=== PATIENT | male | born 1965 | race Caucasian/White ===

== ENCOUNTER 2018-05-23 08:26 | Emergency (ER) | payer OTHER ==
[~2018-05-23] VITALS: Ht 177.8 cm; Wt 167.4 kg
[2018-05-23 09:58] VITALS: BP 155/80
== END 2018-05-23 09:58 | disposition home or self-care (01) ==
LOC: ED 08:26
DX: L03.114 Cellulitis of left upper limb (principal); F11.10 Opioid abuse, uncomplicated; E11.65 Type 2 diabetes mellitus with hyperglycemia
CPT/HCPCS: 82962; 90715; A4570; J0696

== ENCOUNTER 2018-07-05 09:09 | Emergency (ER) | payer OTHER ==
[~2018-07-05] VITALS: Ht 177.8 cm; Wt 117.0 kg
[2018-07-05 09:20] VITALS: BP 149/92; Ht 177.8 cm; Wt 117.0 kg
== END 2018-07-05 10:28 | disposition home or self-care (01) ==
LOC: ED 09:09
DX: L90.5 Scar conditions and fibrosis of skin (principal); R03.0 Elevated blood-pressure reading, without diagnosis of hypertension; E11.9 Type 2 diabetes mellitus without complications

== ENCOUNTER 2018-07-17 12:59 | Inpatient (IN) | payer OTHER ==
[~2018-07-17] VITALS: Ht 177.8 cm; Wt 119.3 kg
[2018-07-17 13:05] VITALS: Ht 177.8 cm; Wt 119.3 kg
[2018-07-17 14:29] LABS: BASOPHIL % 1.4 % (0-2); PLATELET COUNT 320 x10^3mcL (130-400); RED CELL DISTRIBUTION WIDTH 12.8 % (11.5-14.5)
[2018-07-17 14:48] LABS: CALCIUM 9.1 mg/dL (8.5-10.1); CARBON DIOXIDE 29.7 mmol/L (21-32); CHLORIDE SERUM 96 mmol/L (98-107); CREATININE SERUM 0.9 mg/dL (0.7-1.3); GFR1 > 60 mL/min; GLUCOSE SERUM 350 mg/dL (74-106); SODIUM SERUM 131 mmol/L (136-145)
[2018-07-17 14:59] LABS: T3 TOTAL 1.36 ng/mL
[2018-07-17 15:00] LABS: ALKALINE PHOSPHATASE 129 U/L (46-116); ALT/SGPT 273 U/L (16-63); AST/SGOT 139 U/L (15-37); BILIRUBIN TOTAL 0.6 mg/dL (0.20-1.00); C REACTIVE PROTEIN 5.3 mg/dL (<=0.9); TOTAL PROTEIN, SERUM 7.7 g/dL (6.4-8.2)
[2018-07-17] MEDS ORDERED: LISINOPRIL10 MG PO (15:05)
[2018-07-17] MEDS ORDERED: LANTUS SOLOS100 U/M1 SQ (15:06)
[2018-07-17 15:14] LABS: ERYTHROCYTE SED RATE 41 mm/hr (0-20)
[2018-07-17] MEDS ORDERED: RELION NOVOL100 U/M1 SQ (15:17)
[2018-07-17 15:18] LABS: CK-MB 1.7 ng/mL (0-3.6)
[2018-07-17] MEDS ORDERED: BASAGLAR K100 UNIT/1 SQ (15:18)
[2018-07-17 16:10] LABS: MAGNESIUM 1.8 mg/dL (1.8-2.4); PHOSPHOROUS 3.7 mg/dL (2.5-4.9)
[2018-07-17 16:13] VITALS: BP 138/70
[2018-07-17 16:47] LABS: FREE T4 1.39 ng/dL (0.76-1.46); FREE THYROXINE INDEX 3.7 ug/dL (1.4-4.5); T4(THYROXINE) 11.3 ug/dL (4.7-13.3)
[2018-07-17 17:54] VITALS: BP 143/76
[2018-07-17 20:46] VITALS: BP 136/69
[2018-07-17 21:36] LABS: microscopic required? NO
[2018-07-17 21:45] LABS: UA SPECIFIC GRAVITY 1.025 (1.005-1.035); urine erythrocyte NEGATIVE (NEGATIVE)
[2018-07-17 21:54] LABS: AMPHETAMINE QUAL UR NONE DETECTED (See below)
[2018-07-18 06:36] VITALS: BP 134/73
[2018-07-18 06:40] LABS: CALCIUM 8.5 mg/dL (8.5-10.1); CARBON DIOXIDE 31.2 mmol/L (21-32); CHLORIDE SERUM 98 mmol/L (98-107); CREATININE SERUM 0.7 mg/dL (0.7-1.3); GFR1 > 60 mL/min; GLUCOSE SERUM 274 mg/dL (74-106); MAGNESIUM 1.7 mg/dL (1.8-2.4); PHOSPHOROUS 3.4 mg/dL (2.5-4.9); POTASSIUM SERUM 3.8 mmol/L (3.5-5.1); SODIUM SERUM 134 mmol/L (136-145)
[2018-07-18 06:54] LABS: BASOPHIL % 0.2 % (0-2); PLATELET COUNT 270 x10^3mcL (130-400); RED CELL DISTRIBUTION WIDTH 12.8 % (11.5-14.5)
[2018-07-18 07:54] VITALS: BP 141/76
[2018-07-18 14:58] VITALS: BP 125/67
[2018-07-18 16:06] VITALS: BP 124/53
[2018-07-18 21:32] VITALS: BP 149/76
[2018-07-19 05:46] VITALS: BP 150/65
[2018-07-19 06:53] LABS: CALCIUM 8.6 mg/dL (8.5-10.1); CARBON DIOXIDE 23.8 mmol/L (21-32); CHLORIDE SERUM 102 mmol/L (98-107); CREATININE SERUM 0.8 mg/dL (0.7-1.3); GFR1 > 60 mL/min; GLUCOSE SERUM 293 mg/dL (74-106); POTASSIUM SERUM 3.3 mmol/L (3.5-5.1); SODIUM SERUM 138 mmol/L (136-145)
[2018-07-19 07:31] LABS: BASOPHIL % 0.2 % (0-2); PLATELET COUNT 310 x10^3mcL (130-400); RED CELL DISTRIBUTION WIDTH 12.7 % (11.5-14.5)
[2018-07-19 09:14] LABS: MAGNESIUM 1.9 mg/dL (1.8-2.4)
[2018-07-19 09:37] VITALS: BP 160/69
[2018-07-19 13:11] VITALS: BP 150/69
[2018-07-19 17:30] VITALS: BP 168/73
[2018-07-19 22:33] VITALS: BP 145/64
[2018-07-20 04:30] VITALS: BP 154/76
[2018-07-20 07:26] LABS: CALCIUM 8.5 mg/dL (8.5-10.1); CHLORIDE SERUM 104 mmol/L (98-107); CREATININE SERUM 0.8 mg/dL (0.7-1.3); GFR1 > 60 mL/min; GLUCOSE SERUM 284 mg/dL (74-106); MAGNESIUM 1.8 mg/dL (1.8-2.4); POTASSIUM SERUM 3.5 mmol/L (3.5-5.1); SODIUM SERUM 138 mmol/L (136-145)
[2018-07-20 08:05] LABS: BASOPHIL % 0.1 % (0-2); PLATELET COUNT 311 x10^3mcL (130-400); RED CELL DISTRIBUTION WIDTH 12.9 % (11.5-14.5)
[2018-07-20 10:00] VITALS: BP 148/67
[2018-07-20 12:52] VITALS: BP 158/54
[2018-07-20 18:30] VITALS: BP 150/64
[2018-07-20 20:09] VITALS: BP 120/58
[2018-07-21 06:15] VITALS: BP 116/64
[2018-07-21 06:34] LABS: BASOPHIL % 0.4 % (0-2); PLATELET COUNT 271 x10^3mcL (130-400); RED CELL DISTRIBUTION WIDTH 12.8 % (11.5-14.5)
[2018-07-21 06:48] LABS: CALCIUM 8.3 mg/dL (8.5-10.1); CARBON DIOXIDE 25.8 mmol/L (21-32); CHLORIDE SERUM 102 mmol/L (98-107); CREATININE SERUM 0.9 mg/dL (0.7-1.3); GFR1 > 60 mL/min; GLUCOSE SERUM 300 mg/dL (74-106); POTASSIUM SERUM 3.4 mmol/L (3.5-5.1); SODIUM SERUM 134 mmol/L (136-145)
[2018-07-21 09:09] VITALS: BP 150/70
[2018-07-21 12:20] VITALS: BP 116/69
[2018-07-21 16:35] VITALS: BP 136/64
[2018-07-21 21:05] VITALS: BP 123/51
[2018-07-22 05:32] VITALS: BP 144/62
[2018-07-22 07:04] LABS: BASOPHIL % 0.2 % (0-2); PLATELET COUNT 237 x10^3mcL (130-400); RED CELL DISTRIBUTION WIDTH 12.9 % (11.5-14.5)
[2018-07-22 07:15] LABS: CALCIUM 8.1 mg/dL (8.5-10.1); CARBON DIOXIDE 22.4 mmol/L (21-32); CREATININE SERUM 1.9 mg/dL (0.7-1.3); POTASSIUM SERUM 3.7 mmol/L (3.5-5.1)
[2018-07-22 08:37] VITALS: BP 106/55
[2018-07-22 11:47] VITALS: BP 107/51
[2018-07-22 16:23] VITALS: BP 131/60
[2018-07-22 21:11] VITALS: BP 141/63
[2018-07-23 05:28] VITALS: BP 133/56
[2018-07-23 06:24] LABS: BASOPHIL % 0.1 % (0-2); PLATELET COUNT 231 x10^3mcL (130-400); RED CELL DISTRIBUTION WIDTH 12.9 % (11.5-14.5)
[2018-07-23 06:37] LABS: CALCIUM 8.8 mg/dL (8.5-10.1); CARBON DIOXIDE 21.8 mmol/L (21-32); CREATININE SERUM 2.5 mg/dL (0.7-1.3); POTASSIUM SERUM 4.2 mmol/L (3.5-5.1)
[2018-07-23 09:37] VITALS: BP 138/70
[2018-07-23] MEDS ORDERED: ZESTRIL10 MG PO (15:00)
[2018-07-23] MEDS ORDERED: TOR10 PO (15:01)
[2018-07-23] MEDS ORDERED: AUG500 PO (15:03)
[2018-07-23 17:34] VITALS: BP 139/64
[2018-07-23 22:17] VITALS: BP 147/54
[2018-07-24 00:44] VITALS: BP 147/54
[2018-07-24 05:16] VITALS: BP 139/56
== END 2018-07-24 07:36 | disposition home or self-care (01) | DRG 720 ==
LOC: ED 12:59 → DU 14:32 → MU 14:32 → DU 15:49
PROVIDERS: Internal Medicine; Specialist; Surgery; ADMIT Family Medicine
PROC: 0J993ZZ Drainage of Buttock Subcutaneous Tissue and Fascia, Percutaneous Approach (ICD-10-PCS; 2018-07-18)
PROC: 0J993ZZ Drainage of Buttock Subcutaneous Tissue and Fascia, Percutaneous Approach (ICD-10-PCS; principal; 2018-07-18 11:00)
DX: A41.9 Sepsis, unspecified organism (principal); E44.0 Moderate protein-calorie malnutrition; E10.65 Type 1 diabetes mellitus with hyperglycemia; E87.1 Hypo-osmolality and hyponatremia; E66.9 Obesity, unspecified; L02.31 Cutaneous abscess of buttock; F11.10 Opioid abuse, uncomplicated; R74.0 Nonspecific elevation of levels of transaminase and lactic acid dehydrogenase [LDH]; L02.413 Cutaneous abscess of right upper limb; L03.114 Cellulitis of left upper limb; L02.414 Cutaneous abscess of left upper limb; I10 Essential (primary) hypertension; Z68.37 Body mass index [BMI] 37.0-37.9, adult; Z90.49 Acquired absence of other specified parts of digestive tract
CPT/HCPCS: 82962; 84439; 94150; J0295; J1170; J1815; J1885; J2001; J2060; J2250; J2405; J2543; J3370; J7030; J7050; Q0092

== ENCOUNTER 2018-08-03 09:03 | Emergency (ER) | payer OTHER ==
[~2018-08-03] VITALS: Ht 177.8 cm; Wt 115.7 kg
[~2018-08-03 09:03] MED LIST: AUG500 PO; BASAGLAR K100 UNIT/1 SQ; LANTUS SOLOS100 U/M1 SQ; LISINOPRIL10 MG PO; RELION NOVOL100 U/M1 SQ; TOR10 PO; ZESTRIL10 MG PO
[2018-08-03 09:54] VITALS: BP 184/89
== END 2018-08-03 09:54 | disposition home or self-care (01) ==
LOC: ED 09:03
DX: Z48.00 Encounter for change or removal of nonsurgical wound dressing (principal); E11.9 Type 2 diabetes mellitus without complications; I10 Essential (primary) hypertension; Z90.49 Acquired absence of other specified parts of digestive tract